=== PATIENT | female | born 1945 | race African-American/Black ===

== ENCOUNTER 2022-05-27 09:46 | Emergency (ER) | payer MEDICARE, SELFPAY ==
[2022-05-27 09:55] VITALS: BP 149/112; PULSE 123; RESP 20; TEMP 37
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
== END 2022-05-27 10:51 | disposition home or self-care (01) ==
PROVIDERS: Emergency Provider Nurse Practitioner Family; PCP Family Medicine
DX: R41.0 Disorientation, unspecified (principal); R35.0 Frequency of micturition; I10 Essential (primary) hypertension; I35.0 Nonrheumatic aortic (valve) stenosis; E11.39 Type 2 diabetes mellitus with other diabetic ophthalmic complication; H42 Glaucoma in diseases classified elsewhere; M19.90 Unspecified osteoarthritis, unspecified site
CPT/HCPCS: 81003; 87077; 87086; 87088; 99213; G0463

== ENCOUNTER 2022-07-31 09:43 | Emergency (ER) | payer MEDICARE, SELFPAY ==
[2022-07-31 09:57] VITALS: BP 212/95; PULSE 105; RESP 16; TEMP 36.2; O2SAT 100
--- NOTE | 2022-07-31 10:00 | ED.EAR ---
HPI - Ear Problem General Chief complaint: Ear Stated complaint: EAR WAX Time Seen by Provider: 07/31/22 10:00 Source: patient, RN notes reviewed and old records reviewed Mode of arrival: ambulatory Limitations: no limitations History of Present Illness HPI Narrative: 77 year old female presents to [facility] care with complaints of having decreased hearing and feelings of ears being plugged up with history of problems with ear wax build up in the past. patient also states that she needs to have her urine checked because she is going frequently but denies any burning or pain with urination. Patient is diabetic but states that she doesn't check her sugars.Blood pressure is elevated today and patient states that she has not yet taken her blood pressure medication this morning and had been out of her medication for a couple of days. MD Complaint: decreased hearing and other (feels like ears are plugged) Location: bilateral Discharge from ear: Reports no Treatment prior to arrival: none Related Data Home Medications Medication Instructions Recorded Confirmed lancets (Lancets, Super Thin) #50 ea 07/27/19 12/12/21 Allergies Allergy/AdvReac Type Severity Reaction Status Date / Time Penicillins Allergy Unknown Facial Verified 07/31/22 10:01 swelling Sulfa (Sulfonamide Allergy Unknown Facial Verified 07/31/22 10:01 Antibiotics) swelling Review of Systems Review of Systems: CONSTITUTIONAL: Denies malaise, chills, sweats, or fever. EYES: Denies visual changes, redness, or discharge. ENT: Reports no rhinorrhea, congestion, sinus pain,ears feel plugged with decreased hearing, denies any sore throat. CARDIOVASCULAR: Denies chest pain, palpitations, or edema. RESPIRATORY: no cough.? Denies dyspnea. GASTROINTESTINAL: Denies abdominal pain, nausea, vomiting, diarrhea SKIN: Denies rash or itching. MUSCULOSKELETAL: Denies myalgia. NEUROLOGIC: Denies headache. All systems reviewed & are unremarkable except as noted in HPI and below PMFSH Past Medical History Medical History Essential (primary) hypertension Glaucoma Mild aortic stenosis Patellar fracture Type 2 diabetes mellitus without complication, without long-term current use of insulin Unspecified osteoarthritis, unspecified site Vitamin D deficiency Surgical History Surgical History History of cataract extraction (~2008) History of cholecystectomy 1970s Hx of hysterectomy, total (~1996) Family History Family History Other Family history of glaucoma Hypertension Social History Social History Smoking status: Never smoker Second hand tobacco smoke exposure: No Alcohol intake: current Substance use: current Substance use type: marijuana Other substance usage details: Glucoma Gender identity (if verbalized by the patient): Female Comments At time of signature, agree with nursing past medical, surgical, social and family history. There is no relevant family history pertinent to the presenting complaint Exam Narrative: GENERAL: Well-appearing, well-nourished, and in no acute distress. HEAD: Normocephalic EYES: PERRLA, conjunctivae clear ENT: Nares clear, turbinates edematous and erythematous, clear discharge. Mucous membranes moist. TM pearly llanes with dull light reflex bilaterally; no tragal tenderness. Oropharynx erythematous without lesions. Tonsils not enlarged and without exudate, no drooling, no hoarseness, no trismus, uvula midline. NECK: Supple. No lymphadenopathy CHEST: Clear to auscultation, breath sounds equal. No wheezing, rhonchi, rales, or stridor. No respiratory distress, speaks in full sentences.SAO2 100% on room air HEART: Regular rate and rhythm. No murmur heard. SKIN: Warm, dry, no carline
[2022-07-31 10:01] VITALS: BP 212/95; PULSE 105; RESP 16; TEMP 36.2; O2SAT 100
--- NOTE | 2022-07-31 10:27 | PC.NURSE ---
PT IS REQUESTING URINE TESTING, DENIES ANY SX. SPECIMEN COLLECTED ORDERED. WILL CONTINUE TO MONITOR.
[2022-07-31 10:48] VITALS: BP 194/104; PULSE 94; RESP 18; O2SAT 98
--- NOTE | 2022-07-31 10:51 | PC.NURSE ---
PT IS HYPERTENSIVE UPON ARRIVAL, REPORTS SHE HAS BEEN OUT OF HER BP MEDICATION FOR A COUPLE OF DAYS AND HAS NOT TAKEN IT YET TODAY. PT THEN ASKS, WHICH ONE IS MY BLOOD PRESSURE MEDICATION? PT ALSO REPORTS SHE HAS NOT BEEN CHECKING HER BLOOD SUGAR, I DON'T KNOW WHERE THE THING TO CHECK IT IS. PT REPORTS SHE HAS AN EYE DR APPOINTMENT THIS AM AND NEEDS TO GO. UPON RECHECK OF BP, EARLY YEARS TEACHER IS AWARE OF VS, PT TO BE DC HOME.
== END 2022-07-31 10:48 | disposition home or self-care (01) ==
PROVIDERS: Emergency Provider Registered Nurse; PCP Family Medicine
DX: H61.23 Impacted cerumen, bilateral (principal); N39.0 Urinary tract infection, site not specified; I10 Essential (primary) hypertension; I35.0 Nonrheumatic aortic (valve) stenosis; M19.90 Unspecified osteoarthritis, unspecified site; E55.9 Vitamin D deficiency, unspecified; E11.39 Type 2 diabetes mellitus with other diabetic ophthalmic complication; H42 Glaucoma in diseases classified elsewhere; Z79.84 Long term (current) use of oral hypoglycemic drugs
CPT/HCPCS: 69209; 81003; 87086; 99213; G0463

== ENCOUNTER 2023-04-18 17:37 | Emergency (ER) | payer MEDICARE, SELFPAY ==
[2023-04-18] VITALS (19 sets, daily range): BP systolic 123–179; BP diastolic 76–112; PULSE 87–105; RESP 16; TEMP 36.6; O2SAT 95–100
--- NOTE | 2023-04-18 20:05 | ECG_ITS ---
Measurements Intervals [place] Rate: 88 P: 49 IN: 141 QRS: -25 QRSD: 96 T: 51 QT: 371 QTc: 450 Interpretive Statements SINUS RHYTHM ATRIAL PREMATURE COMPLEX POSSIBLE LEFT ATRIAL ENLARGEMENT INCOMPLETE RIGHT BUNDLE BRANCH BLOCK VOLTAGE CRITERIA FOR LVH ST ELEVATION IN DIFFUSE LEADS- PROBABLY EARLY REPOLARIZATION ABNORMALITY BORDERLINE ECG NO PREVIOUS ECG AVAILABLE FOR COMPARISON Electronically Signed On 04-19-2023 8:06:03 CDT by Piyush Nesbitt D.O.
--- NOTE | 2023-04-18 20:07 | ED.DIZZY ---
HPI - Dizziness General Chief Complaint: Dizziness Stated Complaint: dizzy Time Seen by Provider: 04/18/23 19:49 History of Present Illness HPI Narrative: Patient is a 78-year-old female with a history of hypertension, diabetes presenting with lightheadedness. Currently states that she feels well. States that she was at [facility] for nearly 2 days and was discharged yesterday. States that they started her on new medicines which she started today. States that they left her IV in which is still in place. States that currently her living situation is a bit unstable as she would like to get in with an assisted living facility. States that she has been staying with her brother but she does not get along with her [id number]. She was feeling lightheaded earlier today so she came in for evaluation. States that it was brief and self resolved. Currently she denies any complaints. Related Data Home Medications Medication Instructions Recorded Confirmed lancets (Lancets, Super Thin) #50 ea 07/27/19 08/02/22 Allergies Allergy/AdvReac Type Severity Reaction Status Date / Time Penicillins Allergy Unknown Facial Verified 08/02/22 10:07 swelling Sulfa (Sulfonamide Allergy Unknown Facial Verified 08/02/22 10:07 Antibiotics) swelling Review of Systems Review of Systems: All systems reviewed & are unremarkable except as noted in HPI and below PMFSH Past Medical History Medical History Essential (primary) hypertension Glaucoma Mild aortic stenosis Patellar fracture Type 2 diabetes mellitus without complication, without long-term current use of insulin Unspecified osteoarthritis, unspecified site Vitamin D deficiency Surgical History Surgical History History of cataract extraction (~2008) History of cholecystectomy 1970s Hx of hysterectomy, total (~1996) Family History Family History Other Family history of glaucoma Hypertension Social History Social History Smoking status: Never smoker Second hand tobacco smoke exposure: No Alcohol intake: current Substance use: current Substance use type: marijuana Other substance usage details: Glucoma Living arrangements: alone Occupation/Education: retired Gender identity (if verbalized by the patient): Female Exam Narrative: GENERAL: Well-appearing, in no acute distress, pleasant and cooperative HEAD: Normocephalic, atraumatic. EYES: PERRLA and EOMI. ENT: Mucous membranes moist. NECK: Supple. CHEST: Clear to auscultation. No respiratory distress. HEART: Regular rate and rhythm. ABDOMEN: Soft, nontender, nondistended EXTREMITIES: Normal range of motion. No edema. IV in place right forearm with dressing dated from yesterday SKIN: Warm, dry, no rash. NEURO: No focal deficits. Alert and oriented x3. PSYCH: Normal mood and affect. Course Vital Signs Vital signs: Vital Signs Temperature 97.9 F 04/18/23 17:57 Pulse Rate 105 H 04/18/23 17:57 Respiratory Rate 16 04/18/23 17:57 Blood Pressure 149/77 H 04/18/23 17:57 Pulse Oximetry 98 04/18/23 17:57 Temperature 97.9 F 04/18/23 17:57 Pulse Rate 87 04/18/23 22:32 Respiratory Rate 16 04/18/23 22:32 Blood Pressure 164/108 H 04/18/23 22:32 Pulse Oximetry 100 04/18/23 22:32 MDM - Dizziness MDM Narrative Medical decision making narrative: Patient is a 78-year-old female presenting with an episode of lightheadedness earlier today. States that this resolved while she was in the waiting room. Vitals are stable. Exam remarkable for the above. EKG per my interpretation shows normal sinus rhythm, left axis deviation, incomplete right bundle, no acute ischemic changes. Blood work is unremarkable. UA is concerning
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
[2023-04-18 20:30] LABS: Basophils Percent Auto 0.6 % (0.2-1.2); Eosinophils Absolute Auto 0.1 K/mm3 (0-0.3); Eosinophils Percent Auto 2.5 % (0-4.4); Hematocrit 36.4 % (37.0-47.0); Hemoglobin 11.6 g/dL (12.0-15.0); Immature Granulocyte Absolute 0.01 K/mm3 (0.00-0.031); Immature Granulocyte Percent A 0.2 % (0-0.5); Lymphocytes Absolute Auto 2.55 K/mm3 (0.9-3.2); Lymphocytes Percent Auto 48.6 % (18.3-44.2); Mean Corpuscular HGB Conc 31.9 g/dl (32-36); Mean Corpuscular Hemoglobin 24.5 pg (26-34); Mean Platelet Volume 10.8 fl (7.4-10.4); Monocytes Absolute Auto 0.5 K/mm3 (0.1-0.6); Monocytes Percent Auto 9.9 % (2.6-8.5); Neutrophils Percent Auto 38.2 % (45.5-73.1); Platelet Count Result 227 k/mm3 (150-375); Red Blood Count 4.73 M/mm3 (4.2-5.4); Red Cell Distribution Width 13.1 % (11.5-14.5); White Blood Count 5.3 K/mm3 (4.5-10.0)
[2023-04-18 20:43] LABS: Alanine Aminotransferase 17 U/L (6-35); Albumin Level 4.4 g/dL (3.5-5.1); Alkaline Phosphatase 66 U/L (38-126); Anion Gap 5 mmol/L (8-16); Aspartate Amino Transferase 24 U/L (14-36); Bilirubin,Total 0.7 mg/dL (0.2-1.3); Blood Urea Nitrogen 14 mg/dL (7-17); Calcium 10.4 mg/dL (8.4-10.2); Carbon Dioxide 29 mmol/L (22-30); Chloride 100 mmol/L (98-107); Estimated CRCL calculation 52 ml/min; Estimated Glomerular Filt Rate > 60; Glucose 203 mg/dL (65-110); Potassium 3.4 mmol/L (3.4-5.0); Sodium 134 mmol/L (137-145)
[2023-04-18] MEDS: SODIUM CHLORIDE 0.9% IV 1,000 ML 999 ML IV CONT (20:49)
[2023-04-18 20:54] LABS: Troponin I < 0.012 ng/mL (0.000-0.034)
[2023-04-18 21:58] LABS: Appearance Urine Cloudy (Clear); Bacteria Urine Rare /hpf; Bilirubin Urine Negative (Negative); Blood Urine Negative (Negative); Color Urine Yellow (Yellow); Glucose Urine UA Negative (Negative); Ketones Urine Trace mg/dL (Negative); Leukocyte Esterase Ur 3+ LEU/UL (Negative); Nitrate Urine Negative (Negative); Non Pathogenic Casts 0-2; Protein Urine 1+ mg/dL (Negative); RBC Urine 0-2 /hpf (0-2); Specific Grav Ur 1.021 (1.001-1.035); Squamous Epithelial Cell Urine Few /hpf (Few); WBC Urine >100 /hpf
[2023-04-18 22:05] LABS: Add Urine Microscopic? YES
[2023-04-18] MEDS: CEPHALEXIN 500 MG CAPSULE PO (22:54)
== END 2023-04-18 23:55 | disposition home or self-care (01) ==
PROVIDERS: Emergency Provider Emergency Medicine; PCP Family Medicine
DX: N39.0 Urinary tract infection, site not specified (principal); I10 Essential (primary) hypertension; E11.39 Type 2 diabetes mellitus with other diabetic ophthalmic complication; H42 Glaucoma in diseases classified elsewhere; E55.9 Vitamin D deficiency, unspecified; M19.90 Unspecified osteoarthritis, unspecified site; Z98.49 Cataract extraction status, unspecified eye; Z90.49 Acquired absence of other specified parts of digestive tract; Z90.710 Acquired absence of both cervix and uterus; Z79.84 Long term (current) use of oral hypoglycemic drugs; I49.1 Atrial premature depolarization; I45.10 Unspecified right bundle-branch block; R94.31 Abnormal electrocardiogram [ECG] [EKG]
CPT/HCPCS: 36415; 80053; 81001; 84484; 85025; 87086; 87088; 93005; 96360; 99284; A9270; J7030

== ENCOUNTER 2023-05-01 09:38 | Emergency (ER) | payer MEDICARE, SELFPAY ==
--- NOTE | ~2023-05-01 | CT_ITS ---
EXAMINATION: CT brain wo con INDICATION: Increasing confusion, fall four days ago COMPARISON: None TECHNIQUE: Standard unenhanced head CT. The dose-length product (DLP) was 605.33 mGy-cm. The mA was a djusted according to patient size. Iterative reconstruction technique was employed. FINDINGS: No acute intraparenchymal hemorrhage. No evidence of mass lesion. No acute infarction is id entified. Hypoattenuation in the left basal ganglia likely reflects prior infarction. There are areas of periventricular hypoattenuation in the right frontal and right parietal white matter, probably re lated to small vessel ischemic disease. There is mild prominence of the sulci and ventricles related to cerebral atrophy. Intracranial calcified cerebral atherosclerosis is noted. No extra-axial collect ions. No mass effect or midline shift. Changes in the globes are likely from ocular lens surgery. The visualized sinuses and mastoid air cells are well aerated. IMPRESSION: 1. No acute intracranial abnormality. 2. Age related findings. Reviewed, dictated and finalized at location L.
[2023-05-01 09:45] VITALS: BP 147/88; PULSE 101; RESP 13; TEMP 36.3; O2SAT 100
--- NOTE | 2023-05-01 09:57 | ECG_ITS ---
Measurements Intervals [place] Rate: 100 P: 59 IN: 130 QRS: -16 QRSD: 96 T: 64 QT: 373 QTc: 481 Interpretive Statements SINUS TACHYCARDIA LEFT VENTRICULAR HYPERTROPHY AND ST-T CHANGE [VOLTAGE CRITERIA PLUS ST/T ABNORMALITY] ABNORMAL ECG COMPARED TO ECG 04/18/2023 20:44:06 SINUS TACHYCARDIA NOW PRESENT Electronically Signed On 05-01-2023 13:32:47 CDT by Erasmo Gagnon M.D.
[2023-05-01 11:10] LABS: Basophils Percent Auto 0.1 % (0.2-1.2); Eosinophils Percent Auto 0.1 % (0-4.4); Hematocrit 41.8 % (37.0-47.0); Hemoglobin 13.8 g/dL (12.0-15.0); Immature Granulocyte Absolute 0.04 K/mm3 (0.00-0.031); Immature Granulocyte Percent A 0.6 % (0-0.5); Lymphocytes Absolute Auto 1.31 K/mm3 (0.9-3.2); Lymphocytes Percent Auto 19.5 % (18.3-44.2); Mean Corpuscular Hemoglobin 24.5 pg (26-34); Mean Corpuscular Volume 74.1 fl (80-100); Monocytes Absolute Auto 0.6 K/mm3 (0.1-0.6); Monocytes Percent Auto 8.6 % (2.6-8.5); Neutrophils Absolute Auto 4.8 K/mm3 (1.3-6.7); Neutrophils Percent Auto 71.1 % (45.5-73.1); Platelet Count Result 321 k/mm3 (150-375); Red Blood Count 5.64 M/mm3 (4.2-5.4); Red Cell Distribution Width 12.8 % (11.5-14.5); White Blood Count 6.7 K/mm3 (4.5-10.0)
[2023-05-01 11:25] LABS: Appearance Urine Cloudy (Clear); Bacteria Urine None Seen /hpf; Bilirubin Urine Negative (Negative); Blood Urine 3+ (Negative); Color Urine Dark Yellow (Yellow); Glucose Urine UA 3+ mg/dL (Negative); Hyaline Casts Urine Present /lpf; Ketones Urine 2+ mg/dL (Negative); Leukocyte Esterase Ur 1+ LEU/UL (Negative); Nitrate Urine Negative (Negative); Protein Urine 3+ mg/dL (Negative); RBC Urine 51-100 /hpf (0-2); Specific Grav Ur 1.029 (1.001-1.035); Squamous Epithelial Cell Urine None seen /hpf (Few); WBC Clumps Urine Present /HPF; WBC Urine >100 /hpf
[2023-05-01 11:27] LABS: Acetaminophen < 10 ug/mL (10-30); Ethanol < 10 mg/dL (<10); Salicylate < 1.0 mg/dL (2-20)
[2023-05-01 11:29] LABS: Lactic Acid Reflex 1.6 mmol/L (0.7-2.0)
[2023-05-01 11:30] LABS: Ammonia < 9 umol/L (9-30)
[2023-05-01 11:31] LABS: Add Urine Microscopic? YES; Alanine Aminotransferase 16 U/L (6-35); Alkaline Phosphatase 88 U/L (38-126); Anion Gap 14 mmol/L (8-16); Aspartate Amino Transferase 21 U/L (14-36); Bilirubin,Total 1.4 mg/dL (0.2-1.3); Blood Urea Nitrogen 38 mg/dL (7-17); Calcium 11.6 mg/dL (8.4-10.2); Carbon Dioxide 26 mmol/L (22-30); Chloride 89 mmol/L (98-107); Creatine Kinase 50 U/L (30-135); Estimated CRCL calculation 40 ml/min; Estimated Glomerular Filt Rate > 60; Glucose 380 mg/dL (65-110); Potassium 3.3 mmol/L (3.4-5.0); Sodium 129 mmol/L (137-145)
[2023-05-01 11:34] LABS: Prothrombin Time 13.9 Seconds (11.1-14.7)
[2023-05-01 11:35] LABS: Partial Thromboplastin Time 24.1 SECONDS (22.3-36.8)
[2023-05-01 11:53] VITALS: BP 177/101; PULSE 94; RESP 17; O2SAT 100
[2023-05-01] MEDS: MAGNESIUM SULF 1 GM/D5W 100 ML 1 GM/100 ML BAG IVPB (12:11)
--- NOTE | 2023-05-01 12:56 | ED.AMS ---
HPI - Altered Mental Status General Chief Complaint: Altered Mental Status Stated Complaint: FALL CONFUSION Time Seen by Provider: 05/01/23 10:18 History of Present Illness HPI narrative: Patient is a 78-year-old female who presents to the emergency department this morning accompanied by her son due to concern for confusion. Son states that approximately 4 days ago the patient fell and went to her doctor where they performed some x-rays which were negative. Son does not believe they performed a CT scan of her head. He was a little bit concerned that since then she has been acting a little unusual and wanted her to be further evaluated. Patient is currently alert and oriented to person, place, time and situation and has no complaints. Patient denies any chest pain, shortness of breath, nausea, vomiting, abdominal pain, dysuria, hematuria, constipation, diarrhea, melena, hematochezia, fevers or chills. He also denies any headaches, dizziness, lightheadedness, blurry visions, dizziness, focal weakness, numbness and or tingling. There are no other modifying, alleviating, or precipitating factors at this time. Related Data Home Medications Medication Instructions Recorded Confirmed lancets (Lancets, Super Thin) #50 ea 07/27/19 08/02/22 Allergies Allergy/AdvReac Type Severity Reaction Status Date / Time Penicillins Allergy Unknown Facial Verified 05/01/23 09:53 swelling Sulfa (Sulfonamide Allergy Unknown Facial Verified 05/01/23 09:53 Antibiotics) swelling Review of Systems Review of Systems: All systems are reviewed and are negative unless stated otherwise in the HPI. [facility] Past Medical History Medical History Essential (primary) hypertension Glaucoma Mild aortic stenosis Patellar fracture Type 2 diabetes mellitus without complication, without long-term current use of insulin Unspecified osteoarthritis, unspecified site Vitamin D deficiency Surgical History Surgical History History of cataract extraction (~2008) History of cholecystectomy 1970s Hx of hysterectomy, total (~1996) Family History Family History Other Family history of glaucoma Hypertension Social History Social History Smoking status: Never smoker Second hand tobacco smoke exposure: No Alcohol intake: current Substance use: current Substance use type: marijuana Other substance usage details: Glucoma Living arrangements: alone Occupation/Education: retired Gender identity (if verbalized by the patient): Female Exam Narrative: General: Alert, awake, afebrile, in no acute distress. HEENT: PERRL, no rhinorrhea, no post nasal drip, oropharynx clear. Neck: Trachea midline, no JVD, no lymphadenopathy. Cardiovascular: Regular rate and rhythm, no murmurs, rubs or gallops, no peripheral edema. Respiratory: Clear to auscultation bilaterally, no tachypnea, no wheezing, no rhonchi, no rubs, no respiratory distress. Abdomen: Soft, nontender, nondistended, no rebound, no guarding, no peritoneal signs. Musculoskeletal: No joint swelling or deformity, normal muscle tone. Skin: No rashes or petechia, no signs of infection. Psychiatric: Alert and oriented, normal behavior and judgment for situation. Neurological: Alert and oriented to person, place, and time. Follows all commands. No focal deficits, speech is clear and fluent. Course Vital Signs Vital signs: Vital Signs Temperature 97.3 F L 05/01/23 09:45 Pulse Rate 101 H 05/01/23 09:45 Respiratory Rate 13 05/01/23 09:45 Blood Pressure 147/88 H 05/01/23 09:45 Pulse Oximetry 100 05/01/23 09:45 Oxygen Delivery Room Air 05/01/23 09:45 Temperature 97.3 F L 05/01/23 09:45 Pulse Rate 104 H 05/01/23 13:03 Respiratory
[2023-05-01] MEDS: SODIUM CHLORIDE 0.9% IV 500 ML 999 ML IV CONT (13:01)
[2023-05-01] MEDS: POTASSIUM CHLORIDE 20 MEQ ER TABLET 40 MEQ PO (13:02)
[2023-05-01 13:03] VITALS: BP 193/108; PULSE 104; RESP 16; O2SAT 100
[2023-05-01 13:30] VITALS: BP 216/109; PULSE 95; RESP 16; O2SAT 99
== END 2023-05-01 14:08 | disposition home or self-care (01) ==
PROVIDERS: Emergency Provider Emergency Medicine; PCP Family Medicine
DX: N39.0 Urinary tract infection, site not specified (principal); F05 Delirium due to known physiological condition; I10 Essential (primary) hypertension; E86.0 Dehydration; E87.1 Hypo-osmolality and hyponatremia; E87.6 Hypokalemia; E07.9 Disorder of thyroid, unspecified; E11.39 Type 2 diabetes mellitus with other diabetic ophthalmic complication; H42 Glaucoma in diseases classified elsewhere; E55.9 Vitamin D deficiency, unspecified; I35.0 Nonrheumatic aortic (valve) stenosis; M19.90 Unspecified osteoarthritis, unspecified site; Z98.49 Cataract extraction status, unspecified eye; Z90.49 Acquired absence of other specified parts of digestive tract; Z90.710 Acquired absence of both cervix and uterus; Z79.84 Long term (current) use of oral hypoglycemic drugs; Z79.899 Other long term (current) drug therapy; R00.0 Tachycardia, unspecified; I51.7 Cardiomegaly; R94.31 Abnormal electrocardiogram [ECG] [EKG]
CPT/HCPCS: 36415; 70450; 80053; 80307; 81001; 82140; 82550; 83605; 84443; 85025; 85610; 85730; 87086; 93005; 96365; 99284; A9270; J3475; J7040